=== PATIENT | male | born 1965 | race Caucasian/White ===

== ENCOUNTER 2016-10-13 13:33 | Emergency (ER) | payer SELFPAY ==
[~2016-10-13] VITALS: Ht 180.3 cm; Wt 89.0 kg
[~2016-10-13 13:33] MED LIST: IPRA0.03
[2016-10-13 13:35] VITALS: BP 159/91; PULSE 82; RESP 16; TEMP 97.5; O2SAT 100
[2016-10-13] MEDS ORDERED: SODIUM CHLORIDE 0.9% FLUSH 10 ML FLUSH IVF PRN (14:00)
[2016-10-13 14:35] VITALS: BP 119/79; PULSE 72; RESP 16; O2SAT 99
--- NOTE | 2016-10-13 14:42 | RADRPT ---
EXAM DATE/TIME: 10/13/2016 14:17 [facility] COMPARISON: No previous studies available for comparison. INDICATIONS : Chest pressure, shakes, short of breath. MEDICAL HISTORY : None. SURGICAL HISTORY : None. ENCOUNTER: Initial ACUITY: 1 day PAIN SCORE: 0/10 LOCATION: Bilateral chest FINDINGS: A single view of the chest demonstrates the lungs to be symmetrically aerated with possible granuloma tous type calcifications in the right lung. Linear atelectasis or scarring just above the left hemidi aphragm. Lymphoma joint infiltrate or effusion. Heart size is normal. Osseous structures are intact. CONCLUSION: 1. No acute cardiopulmonary process. 2. Linear atelectasis or scarring of the left. Possible old granulomatous type calcifications in the right chest. Liu Moralez MD on October 13, 2016 at 14:37 Board Certified Radiologist. This report was verified electronically.
--- NOTE | 2016-10-13 14:51 | PD ---
HPI Chief Complaint: Respiratory Distress Time Seen by Provider: 13:56 Travel History International Travel<30 days: No Contact w/Intl Traveler<30days: No Traveled to known affect area: No History of Present Illness HPI 51-year-old male came to the emergency room with history of palpitations, dizziness and numbness of both his legs that started suddenly about an hour ago. No chest pain or headache. No syncopal episode. His vital signs were relatively stable. Patient is not on any medications and has not seen a primary care in 2-3 years. His never had these symptoms in the past. His is here with him. [facility] Past Medical History Narrative Medical List of his past medical, surgical, social and family history was reviewed from the nursing note. Tetanus Vaccination: < 5 Years Family History Narrative Family History His grandmother of heart attack at the age of 66. Family Myocardial Infarction: Yes Social History Alcohol Use: No Tobacco Use: Yes Substance Use: No Allergies-Medications (Allergen,Severity, Reaction): Coded Allergies: No Known Allergies (Unverified , 12/27/14) Comments No known drug allergies. Reported Meds & Prescriptions Reported Meds & Active Scripts Active No Active Prescriptions or Reported Medications Narrative Medication List of his home medications reviewed from the nursing note. Review of Systems Except as stated in HPI: all other systems reviewed are Neg Physical Exam Narrative GENERAL: Awake, alert, anxious, moderate distress SKIN: Focused skin assessment warm/dry. HEAD: Atraumatic. Normocephalic. EYES: Pupils equal and round. No scleral icterus. No injection or drainage. ENT: No nasal bleeding or discharge. Mucous membranes pink and moist. NECK: Trachea midline. No JVD. CARDIOVASCULAR: Regular rate and rhythm. No murmur appreciated. RESPIRATORY: No accessory muscle use. Clear to auscultation. Breath sounds equal bilaterally. GASTROINTESTINAL: Abdomen soft, non-tender, nondistended. Hepatic and splenic margins not palpable. MUSCULOSKELETAL: No obvious deformities. No clubbing. No cyanosis. No edema. NEUROLOGICAL: Awake and alert. No obvious cranial nerve deficits. Motor grossly within normal limits. Normal speech. PSYCHIATRIC: Appropriate mood and affect; insight and judgment normal. Data Data Last Documented VS Vital Signs Date Time Temp Pulse Resp B/P Pulse Ox O2 Delivery O2 Flow Rate FiO2 10/13/16 14:35 14 98 Room Air 10/13/16 14:35 72 119/79 10/13/16 13:35 97.5 Orders Electrocardiogram (10/13/16 13:52) Prothrombin Time / Inr (Pt) (10/13/16 13:56) Complete Blood Count With Diff (10/13/16 13:56) Basic Metabolic Panel (Bmp) (10/13/16 13:56) Troponin I (10/13/16 13:56) Urinalysis - C+S If Indicated (10/13/16 13:56) Ct Brain W/O Iv Contrast(Rout) (10/13/16 13:56) Chest, Single Ap (10/13/16 13:56) Ecg Monitoring (10/13/16 13:56) Iv Access Insert/Monitor (10/13/16 13:56) Oximetry (10/13/16 13:56) Sodium Chloride 0.9% Flush (Ns Flush) (10/13/16 14:00) Mri Brain W/O Contrast (10/13/16 ) Mra Brain W/O Contrast (Cow) (10/13/16 ) Labs Laboratory Tests Test 10/13/16 10/13/16 14:30 15:50 White Blood Count 4.5 TH/MM3 Red Blood Count 4.80 MIL/MM3 Hemoglobin 14.8 GM/DL Hematocrit 43.3 % Mean Corpuscular Volume 90.2 FL Mean Corpuscular Hemoglobin 30.9 PG Mean Corpuscular Hemoglobin 34.3 % Concent Red Cell Distribution Width 12.8 % Platelet Count 241 TH/MM3 Mean Platelet Volume 7.8 FL Neutrophils (%) (Auto) 67.5 % Lymphocytes (%) (Auto) 20.1 % Monocytes (%) (Auto) 11.2 % Eosinophils (%) (Auto) 0.8 % Basophils (%) (Auto) 0.4 % Neutrophils # (Auto) 3.0 TH/MM3 Lymphocytes # (Auto) 0.9 TH/MM3 Monocytes # (Auto) 0.5 TH/MM3 Eosinophils # (Auto) 0.0 TH/MM3 Basophils # (Auto) 0.0 TH/MM3 CBC Comment DIFF FINAL Differential Comment Prothrombin Time 11.3 SEC Prothromb Time International 1.0 RATIO Ratio Sodium Level 139 MEQ/L Potassium Level 3.6 MEQ/L Chloride Level 103 MEQ/L Carbon Dioxide Level 22.9 MEQ/L Anion Gap 13 MEQ/L Blood Urea Nitrogen 10 MG/DL Creatinine 1.04 MG/DL Estimat Glomerular Filtration 76 ML/MIN Rate Random Glucose 127 MG/DL Calcium Level 8.9 MG/DL Troponin I LESS THAN 0.02 NG/ML Urine Color LIGHT-YELLOW Urine Turbidity CLEAR Urine pH 7.0 Urine Specific [place] 1.005 Urine Protein NEG mg/dL Urine Glucose (UA) NEG mg/dL Urine Ketones NEG mg/dL Urine Occult Blood NEG Urine Nitrite NEG Urine Bilirubin NEG Urine Urobilinogen LESS THAN 2.0 MG/DL Urine Leukocyte Esterase NEG Urine RBC LESS THAN 1 /hpf Urine WBC 1 /hpf Microscopic Urinalysis Comment CATH-CULT NOT IND MDM Medical Decision Making Medical Screen Exam Complete: Yes Emergency Medical Condition: Yes Medical Record Reviewed: Yes Interpretation(s) Twelve-lead EKG was reviewed by me. Normal sinus rhythm, normal axis, nonspecific ST-T wave changes. Heart rate of 71 bpm Differential Diagnosis Electrolyte abnormality, TIA, CVA Narrative Course 2:50 PM awaiting for the blood test and CAT scan to be done and resulted. If the CT head is within normal limit I will order MRI. 4:15 PM awaiting for the MRI and MRA to be done and resulted. I went and reassessed him and he says he is feeling a little bit better. If the MRI/MRA are within normal limit patient will be discharged home. 6:51 PM MRI and MRA were within normal limits. Patient will be discharged home. Procedures EKG Prior to Arrival: No Diagnosis Primary Impression: Palpitation Additional Impression: Dizziness Referrals: Primary Care Physician 2 days Additional Instructions: Please return to the ER if the condition worsens or any other new concerns. Otherwise follow-up with your primary care. Do not drive until you've get a clearance from your primary care. Med/Other Pt SpecificInfo: No Change to Meds Scripts No Active Prescriptions or Reported Meds Disposition: 01 DISCHARGE HOME Condition: Stable Andres Tinsley MD Oct 13, 2016 14:51
--- NOTE | 2016-10-13 14:55 | RADRPT ---
EXAM DATE/TIME: 10/13/2016 14:41 [facility] COMPARISON: No previous studies available for comparison. INDICATIONS : Bilateral lower extremity weakness. Dizziness. RADIATION DOSE: 40.20 CTDIvol (mGy) MEDICAL HISTORY : None SURGICAL HISTORY : None. ENCOUNTER: Initial ACUITY: 1 day PAIN SCALE: 0/10 LOCATION: cranial TECHNIQUE: Multiple contiguous axial images were obtained of the head. Using automated exposure control and adj ustment of the mA and/or kV according to patient size, radiation dose was kept as low as reasonably a chievable to obtain optimal diagnostic quality images. FINDINGS: CEREBRUM: The ventricles are normal for age. No evidence of midline shift, mass lesion, hemorrhage or acute in farction. No extra-axial fluid collections are seen. POSTERIOR FOSSA: The cerebellum and brainstem are intact. The 4th ventricle is midline. The cerebellopontine angle i s unremarkable. EXTRACRANIAL: The visualized portion of the orbits is intact. SKULL: The calvaria is intact. No evidence of skull fracture. CONCLUSION: Normal examination. Frank Ramires MD on October 13, 2016 at 14:52 Board Certified Radiologist. This report was verified electronically.
[2016-10-13 15:01] LABS: BASOPHIL % 0.4 % (0.0-2.0); EOSINOPHIL % 0.8 % (0.0-4.0); HEMATOCRIT 43.3 % (39.0-51.0); HEMO FLAGS DIFF FINAL; LYMPH % 20.1 % (9.0-44.0); LYMPHOCYTE # 0.9 TH/MM3 (1.0-4.8); MEAN CELL VOLUME 90.2 FL (80.0-100.0); MEAN CORPUSCULAR HEMOGLOBIN 30.9 PG (27.0-34.0); MEAN CORPUSCULAR HGB CONC 34.3 % (32.0-36.0); MONO % 11.2 % (0.0-8.0); NEUT % 67.5 % (16.0-70.0); PLATELET COUNT 241 TH/MM3 (150-450); RED CELL DISTRIBUTION WIDTH 12.8 % (11.6-17.2); WHITE BLOOD COUNT 4.5 TH/MM3 (4.0-11.0)
[2016-10-13 15:15] LABS: PROTHROMBIN TIME - PATIENT 11.3 SEC (9.8-11.6)
[2016-10-13 15:27] LABS: ANION GAP 13 MEQ/L (5-15); BICARBONATE 22.9 MEQ/L (21.0-32.0); BLOOD UREA NITROGEN 10 MG/DL (7-18); CHLORIDE 103 MEQ/L (98-107); GLOMERULAR FILTRATION RATE 76 ML/MIN (>89); POTASSIUM 3.6 MEQ/L (3.5-5.1); SODIUM (NA) 139 MEQ/L (136-145)
[2016-10-13 15:59] LABS: BLOOD, URINE NEG (NEG); GLUCOSE,URINE NEG (NEG); KETONE, URINE NEG (NEG); NITRITE,URINE NEG (NEG); URINE COLOR LIGHT-YELLOW (YELLW/STRAW)
[2016-10-13 16:02] LABS: COMMENT (UR) CATH-CULT NOT IND; CULTURE IF INDICATED CATH CULTURE NOT IND
--- NOTE | 2016-10-13 18:38 | RADRPT ---
EXAM DATE/TIME: 10/13/2016 18:01 [facility] COMPARISON: No previous studies available for comparison. INDICATIONS : CVA. MEDICAL HISTORY : None. SURGICAL HISTORY : Hernia repair. Lasik eye sx. ENCOUNTER: Subsequent ACUITY: 1 day PAIN SCORE: 3/10 LOCATION: cranial Please note a normal MRA of the brain does not entirely exclude the possibility of a small aneurysm, nor the possibility of distal intracranial vessel disease. TECHNIQUE: 3D time of flight MRA was performed. Source images, multiplanar STS MIP, and 3D volume MIP reconstru ctions were reviewed. FINDINGS: There is excellent visualization of the major intracranial arteries out to the second-order branch ve ssels. There is no evidence for aneurysm, vessel truncation or stenosis, and no evidence for vascula r malformation. Flow is seen in the anterior communicating artery. No flow seen in either PCOM. CONCLUSION: Negative MRA of the [place]. Jamie Coleman MD on October 13, 2016 at 18:35 Board Certified Radiologist. This report was verified electronically.
--- NOTE | 2016-10-13 18:46 | RADRPT ---
EXAM DATE/TIME: 10/13/2016 18:01 [facility] COMPARISON: No previous studies available for comparison. INDICATIONS : CVA. MEDICAL HISTORY : None. SURGICAL HISTORY : Hernia repair. Lasik eye sx. ENCOUNTER: Subsequent ACUITY: 1 day PAIN SCORE: 3/10 LOCATION: cranial TECHNIQUE: Multiplanar, multisequence MRI of the brain was performed without contrast. FINDINGS: CEREBRUM: The ventricles are normal for age. No evidence of midline shift, mass lesion, hemorrhage or acute in farction. No extraaxial fluid collections are seen. The pituitary gland and suprasellar cistern are normal in configuration. WHITE MATTER: No significant signal abnormalities are seen in the white matter. POSTERIOR FOSSA: The cerebellum and brainstem are intact. The 4th ventricle is midline. The cerebellopontine angle is unremarkable. The cerebellar tonsils are normal in position. DIFFUSION IMAGING: No focal areas of restricted diffusion are seen. No evidence of acute infarction. EXTRACRANIAL: The visualized portions of the orbits and paranasal sinuses are unremarkable. CONCLUSION: Negative MRI brain without contrast. Jamie Coleman MD on October 13, 2016 at 18:44 Board Certified Radiologist. This report was verified electronically.
--- NOTE | 2016-10-14 10:55 | EKG ---
Date Performed: 10/13/2016 Time Performed: 13:58:50 PTAGE: 51 years EKG: Sinus rhythm NORMAL ECG NO PREVIOUS TRACING DOCTOR: Kyaw Clement Interpretating Date/Time 10/14/2016 10:55:21
== END 2016-10-13 19:14 | disposition home or self-care (01) ==
LOC: NEPE 13:33
DX: R00.2 Palpitations (principal); R42 Dizziness and giddiness; R20.0 Anesthesia of skin; Z72.0 Tobacco use
CPT/HCPCS: 70450; 70544; 70551; 71010; 80048; 81001; 84484; 85025; 85610; 93005